=== PATIENT | female | born 1965 | race Two or more races ===

== ENCOUNTER 2018-11-02 15:04 | Outpatient (CLI) | payer OTHER | END 2018-11-02 15:09 | disposition home or self-care (01) | LOC: MAMO-SONO 15:04 | DX: N60.11 Diffuse cystic mastopathy of right breast (principal); N60.12 Diffuse cystic mastopathy of left breast; Z12.31 Encounter for screening mammogram for malignant neoplasm of breast ==

== ENCOUNTER 2019-12-20 15:59 | Outpatient (CLI) | payer OTHER | END 2019-12-20 16:02 | disposition home or self-care (01) | LOC: MAMO-SONO 15:59 | PROVIDERS: ATTEND Internal Medicine Cardiovascular Disease | DX: Z12.31 Encounter for screening mammogram for malignant neoplasm of breast (principal); N63.11 Unspecified lump in the right breast, upper outer quadrant; N60.11 Diffuse cystic mastopathy of right breast; N60.12 Diffuse cystic mastopathy of left breast ==

== ENCOUNTER 2021-02-03 09:14 | Outpatient (CLI) | payer OTHER | END 2021-02-03 12:19 | disposition home or self-care (01) | LOC: MAMO-SONO 09:14 | PROVIDERS: ATTEND Internal Medicine Cardiovascular Disease | DX: N63.11 Unspecified lump in the right breast, upper outer quadrant (principal); Z12.31 Encounter for screening mammogram for malignant neoplasm of breast ==

== ENCOUNTER 2022-03-17 13:30 | Outpatient (CLI) | payer OTHER | END 2022-03-17 13:49 | disposition home or self-care (01) | LOC: MAMO-SONO 13:30 | PROVIDERS: ATTEND Internal Medicine Cardiovascular Disease | DX: N63.11 Unspecified lump in the right breast, upper outer quadrant (principal) ==